=== PATIENT | male | born 1965 | race Caucasian/White ===

== ENCOUNTER 2021-03-10 09:48 | Outpatient (RCR) | payer OTHER, SELFPAY ==
--- NOTE | ~2021-03-10 | XR_ITS ---
EXAMINATION: XR TIBIA AND FIBULA, RIGHT CLINICAL INFORMATION: Evaluate for posterior. COMPARISON: None TECHNIQUE: AP and lateral views of the right tibia and fibula were obtained. FINDINGS: The ankle mortise and subtalar joints are normal. There is no periosteal thickening or elevation seen of the tibia and fibula. No fracture or lytic process. Soft tissues are normal. XR/XR tibia fibula RT 2V IMPRESSION: Unremarkable right tibia and fibula. No periosteal thickening or elevation suggest periostitis or osteomyelitis.
[2021-03-13 12:27] LABS: MANUAL DIFF FLAG NO
[2021-03-13 12:35] LABS: Basophils Absolute Auto 0.1 X10*3/uL (0.0-0.2); Basophils Percent Auto 1.3 % (0-2); Eosinophils Absolute Auto 0.2 X10*3/uL (0.0-0.4); Eosinophils Percent Auto 2.3 % (0-4); Hematocrit 45.1 % (42-52); Hemoglobin 14.9 g/dl (14.0-18.0); Imm Gran Abs Auto 0.15 X10*3/uL (0.00-0.03); Imm Gran Pct Auto 2.1 % (0.0-0.4); Lymphocytes Percent Auto 28.7 % (20-40); Mean Corpuscular Hemoglobin 32.7 pg (27.0-33.0); Mean Corpuscular Volume 98.9 fL (80-98); Mean Platelet Volume 9.6 fL (9.4-12.4); Monocytes Percent Auto 13.7 % (2-11); Neutrophils Absolute Auto 3.7 X10*3/uL (2.0-8.3); Neutrophils Percent Auto 51.9 % (45-73); Platelet Count 367 X10*3/uL (160-400); Red Blood Count 4.56 X10*6/uL (4.60-5.80); Red Cell Distribution Width 13.2 % (11.0-16.0); White Blood Count 7.1 X10*3/uL (4.8-10.8)
[2021-03-13 13:13] LABS: Anion Gap 12 (12-20); Blood Urea Nitrogen 13 mg/dL (9-16); Calcium 9.4 mg/dL (8.4-10.2); Carbon Dioxide 27 mmol/L (22-29); Chloride 105 mmol/L (96-108); Estimated Glomerular Filt Rate > 60; Glucose Random 114 mg/dL (60-115); Potassium 4.6 mmol/L (3.3-5.1); Sodium 139 mmol/L (135-145)
[2021-03-13 13:23] LABS: Erythrocyte Sedimentation Rate 39 MM/HR (0-15)
[2021-03-13 14:01] LABS: Estimated Average Glucose 103 mg/dL; Hemoglobin A1c % 5.2 %
== END 2021-05-21 11:35 | disposition home or self-care (01) ==
LOC: HO.WCC 09:48
PROVIDERS: PCP Internal Medicine; Visit Provider Physician Assistant
DX: Z09 Encounter for follow-up examination after completed treatment for conditions other than malignant neoplasm (principal); I87.301 Chronic venous hypertension (idiopathic) without complications of right lower extremity; I73.9 Peripheral vascular disease, unspecified; Z87.891 Personal history of nicotine dependence; Z87.2 Personal history of diseases of the skin and subcutaneous tissue
CPT/HCPCS: 11042; 36415; 73590; 80048; 83036; 84134; 85025; 85652; 86140; 87071; 87077; 87147; 87186; 87205; 97597; 99212; 99213

== ENCOUNTER 2024-08-28 14:38 | Outpatient (REF) | payer OTHER, SELFPAY ==
--- NOTE | ~2024-08-28 | XR_ITS ---
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 FINDINGS: Three views of the left hand are submitted. Osseous mineralization is normal. There is no fracture or dislocation. The joint spaces are preserved. The soft tissues are unremarkable. XR/XR hand LT min 3V IMPRESSION: Unremarkable examination of the left hand. Electronically signed by: Jey Damon MD 08/29/2024 07:51 AM EDT
--- OUTSIDE RECORDS SUMMARY | 2024-08-28 17:26 | XMS_ITS ---
Author Organization Mallory Lr MD Address [address] [id number] Care Team Providers Care Creative Services Writer Name Role Phone Mallory Lr Primary Care Provider Allergies Allergen (clinical drug ingredient) Drug/Non Drug Allergy documented on EMR Reaction Allergy Type Onset Date Status Cat dander cat (uncoded) Unknown Allergy Activ e Dog dander dog (uncoded) Unknown Allergy Activ e dust (uncoded) Unknown Allergy Activ e Ciprofloxacin anaphylaxis Drug Allergy A ctive REASON FOR VISIT Annual Wellness Medications Medication SIG (Take, Route, Frequency, Duration) Notes Start Date End Date Status Triazolam 0.25 MG (Schedule IV Drug) O ral for 30 Active Aspir-81 81 MG 1 tablet Orally ever y other day Active Flonase 50 MCG/ACT 1 spray in each nost ril Nasally Once a day for 30 Active Viagra 100 MG TAKE 1 TABLET BY ALEJA TH ONCE A DAY NEEDED for 4 Active Allopurinol 300 MG TAKE 1 TABLET BY ALEJA TH EVERY DAY for 90 Active traZODone HCl 50 MG 1 Tablet Oral Once a Day at Bedtime for 30 Active EpiPen 2-Marcell 0.3 MG/0.3ML Injection for 2 Active Vitamin D 50 MCG (1999) 1 capsule Ora lly Once a day Active Gabapentin 300 MG 3 Tablets Oral Once a Day at Bedtime for 30 Active Social History Tobacco Use: Social History Observation Description Date Details (start date - stop date) Former Smoker NA - 06/13/2007 AUDIT-C (Standard) Question Answer Notes Did you have a drink contain ing alcohol in the past year? Yes How often did you have a dri nk containing alcohol in the past year? 2 to 3 times a week (3 points) How many drinks did you have on a typical day when you were drinking in the past year? 1 or 2 drinks (0 point) How often did you have six o r more drinks on one occasion in the past year? Never (0 point) Points 3 Interpretation Negative Tobacco Control (Standard) Question Answer Notes Tobacco use: Former smoker When did you stop smoking? 06/13/2007 How long has it been since you last smoked? Emilioa ter than 10 years Problems Problem Type SNOMED Code ICD Code Onset Dates Problem Status W/U Status Risk Notes Problem Localized, primary osteoarthritis of the hand (520509556) Unilateral primary osteoarthritis of first carpometacarpal joint, left hand (M18.12) Active confirmed Vital Signs Temperature 96.8 degrees Fahrenheit 08/29/19 25 Blood pressure systolic 110 mm Hg 08/29/19 25 Blood pressure diastolic 50 mm Hg 025 Heart Rate 67 /min 08/28/2024 Height 5 ft 9 in in 08/28/2024 Weight 213 lbs 08/28/2024 BMI 31.45 kg/m2 08/28/2024 Oximetry 97 % 08/28/2024 Encounters Encounter Location Date Provider Diagnosis Mallory Lr MD [address] [phone] 08/28/2024 Mallory Lr Obstructive sleep ap tila (adult) (pediatric) G47.33 ; Gout, unspecified M10.9 ; Encounter for general adult medical examination without abnormal findings Z00.00 ; Encounter for screening for malignant neoplasm of colon Z12.11 ; Encounter for screening for malignant neoplasm of prostate Z12.5 ; Encounter for screening for cardiovascular disorders Z13.6 ; Encounter for immunization Z23 ; Encounter for antibody response examination Z01.84 ; Encounter for screening for other viral diseases Z11.59 ; Vitamin D deficiency, unspecified E55.9 and Unilateral primary osteoarthritis of first carpometacarpal joint, left hand M18.12 Assessments Encounter Date Diagnosis (ICD Code) Assessment Notes Treatment Notes Treatment Clinical Notes Section Notes 08/28/2024 Obstructive sleep apnea (adult) (pediatric) (ICD-10 - G47.33) He has a new machine and is using his CPAP with benefit. 08/28/2024 Gout, unspecified (ICD-10 - M10.9) Stable prophylactic therapy without any acute flares 08/28/2024 Encounter for general adult medical examination without abnormal findings (ICD-10 - Z00.00) General healthcare up-to-date. Check routine labs 08/28/2024 Encounter for screening for malignant neoplasm of colon (ICD-10 - Z12.11) Up-to-date on colon cancer screening 08/28/2024 Encounter for screening for malignant neoplasm of prostate (ICD-10 - Z12.5) Can check PSA has prostate cancer screening realizing the limitation of this test as a screening test 08/28/2024 Encounter for screening for cardiovascular disorders (ICD-10 - Z13.6) Blood pressure is stable. Can check for comorbidity of hyperlipidemia and hyperglycemia to further assess risk. 08/28/2024 Encounter for immunization (ICD-10 - Z23) Vaccines up to date 08/28/2024 Encounter for antibody response examination (ICD-10 - Z01.84) Titers have been checked in the past and there is immunity to rubeola 08/28/2024 Encounter for screening for other viral diseases (ICD-10 - Z11.59) Can screen for hepatitis C as per general recommendation 08/28/2024 Vitamin D deficiency, unspecified (ICD-10 - E55.9) Check level to verify that there is no deficiency 08/28/2024 Unilateral primary osteoarthritis of first carpometacarpal joint, left hand (ICD-10 - M18.12) He has a vague discomfort in his hand. He was concerned that 1 time his hand locked up. There does not appear to be any neuropathic issue at the moment and this may be related to some degree of arthritis. Can check x-ray and if there is significant issues can consider steroid injection but he is hesitant to do so. Other option would be occupational therapy 08/28/2024 Other This note was created with voice dictation recognition software and may contain errors of grammar and syntax. Also labs were reviewed with patient. Plan Of Treatment Pending Test Test Name Order Date XR Hand Left 08/28/2024 Uric Acid-[id number] 08/28/2024 Urinalysis, Complete-[id number] 08/28/2024 CBC With Differential/Platelet-[id number] Prostate-Specific Ag-[id number] 08/28/2024 Vitamin D, 45-Chahdzy-[id number] 08/28/2024 Comp. Metabolic Panel ([id number] 2024 LP+Non-HDL Cholesterol-[id number] 08/28/2024 HCV Antibody-[id number] 08/28/2024 Future Test Test Name Order Date COLOGUARD 05/13/2025 Next Appt Details Follow Up: 1 Year, Reason: A nnual Provider Name:Mallory Lr , 09/03/2025 01:00:00 PM, [address] [place] [address], SUITE [facility], [place], [place], [phone], Progress Notes * LUÍSSUNFlorencioDOB:[birth year] (59 yo M)Acc No.[id number]:08/28/2024 Progress Notes Patient:?CHAKAJIMMIE Florencio Provider:?Mallory Lr MD :1965???Age:59 Y???Sex:Male Hao e:08/28/2024 Address:[address] [place], [place] [id number] Subjective: * Chief Complaints: * ???1. Annual Wellness. * HPI: ???Depression Screening:?PHQ-2 (2015 Edition)?Little interest or pleasure in doing things??Not at all ?Feeling down, depressed, or hopeless??Not at all ?Total Score?0 * Medical History:?Nephrolithi asis, Gout, unspecified, Premature ventricular beats, Sleep apnea, obstructive parmjit, Diverticulitis of large intestine without perforation or abscess without bleeding, Non-pressure chronic ulcer of unspecified part of right lower leg limited to breakdown of skin (resolved 08/19/2022), Cellulitis of right lower limb (resolved 08/19/2022), COVID19 ITALIA-Virus Identified (resolved 08/19/2022). * Surgical History:?UPP . * Ocular Surgical History:? Ocular Surgical History revi ewed with the patient. * Hospitalization/Major Diagno stic Procedure:?Denies Past Hospitalization. * Family History:?Father: yayo pineda 83 yrs, Diabetes, heart disease, history of skin cancer, atrial fibrillation.?Spouse: alive 55 yrs, Heart disease, stroke.?Mother: alive 79 yrs, Healthy.?2 brother(s) , 1 sister(s) - healthy. .? No family history of: cancer, colon No family history of: cancer, prostate Father: CAD; cancer, skin; diabetes; gout, afib Paternal grandfather: diabetes. * Social History:?Tobacco Use:?Tobacco Control (Standard)?Tobacco use:?Former smoker ?When did you stop smoking??06/13/2007 ?How long has it been since you last smoked??Greater than 10 years ???Drugs/Alcohol:?Drugs?Have you used drugs other than those for medical reasons in the past 12 months??No ?Caffeine?Intake:?3-4 cups per day ?Do you smoke marijuana?: Denies. ?Do you drink alcohol?: Yes, Socially. ???Miscellaneous:?Exercise: no, Not as much. ?Marital status: , in relationship with male partner. 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 ???Household:?Household?Marital status:?Drug/Alcohol:?AUDIT-C (Standard)?Did you have a drink containing alcohol in the past year??Yes ?How often did you have a drink containing alcohol in the past year??2 to 3 times a week (3 points) ?How many drinks did you have on a typical day when you were drinking in the past year??1 or 2 drinks (0 point) ?How often did you have six or more drinks on one occasion in the past year??Never (0 point) ?Points?3 ?Interpretation?Negative * Medications:?Taking Vitamin D 50 MCG (2000 UT) Capsule 1 capsule Orally Once a day , Taking Gabapentin 300 MG Capsule 3 Tablets Oral Once a Day at Bedtime , Taking traZODone HCl 50 MG Tablet 1 Tablet Oral Once a Day at Bedtime , Taking EpiPen 2-Marcell 0.3 MG/0.3ML Solution Auto-injector Injection , Taking Triazolam 0.25 MG Tablet (Schedule IV Drug) Oral , Taking Aspir-81 81 MG Tablet Delayed Release 1 tablet Orally every other day , Taking Flonase 50 MCG/ACT Suspension 1 spray in each nostril Nasally Once a day , Taking Viagra 100 MG Tablet TAKE 1 TABLET BY MOUTH ONCE A DAY NEEDED , Taking Allopurinol 300 MG Tablet TAKE 1 TABLET BY MOUTH EVERY DAY , Medication List reviewed and reconciled with the patient * Allergies:?dust, cat, dog, C iprofloxacin: anaphylaxis - Allergy. Objective: * Vitals:?Temp:96.8F, HR:67/mi n, BP:Sitting Right Arm: 110/50mm Hg, Wt:213lbs, BMI:31.45Index, Ht:5 ft 9 in, Oxygen sat %:97%. Past Vitals:* 08/23/2023 Temp:98.5F, HR:70/min, BP:Si tting Right Arm: 110/70mm Hg, Wt:217.00lbs, BMI:32.04Index, Ht:5 ft 9 in, Oxygen sat %:96% * 08/19/2022 Temp:96.4F, HR:75/min, BP:Si tting Right Arm:122/72mm Hg, Wt:222lbs, BMI:32.78Index, Ht:5 ft 9 in, Oxygen sat %:96% * ???Past Orders: ???Lab:CBC With Differential /Platelet-[id number] (Order Date - 08/23/2023) (Collection Date & Time - 08/23/2023 01:43 PM) ? Value Reference Range ?WBC 7.1 3.4-10.8 - x10E3/uL ?RBC 5.01 4.14-5.80 - x10E6/uL ?Hemoglobin 16.6 13.0-17.7 - g/dL ?Hematocrit 49.6 37.5-51.0 - % ?MCV 99 H 79-97 - fL ?MCH 33.1 H 26.6-33.0 - pg ?MCHC 33.5 31.5-35.7 - g/d L ?RDW 12.8 11.6-15.4 - % ?Platelets 248 150-450 - x10E3/uL ?Neutrophils 44 Not Esta b. - % ?Lymphs 42 Not Estab. - % ?Monocytes 11 Not Estab. - % ?Eos 2 Not Estab. - % ?Basos 1 Not Estab. - % ?Neutrophils (Absolute) 3.1 1.4-7.0 - x10E3/uL ?Lymphs (Absolute) 3.0 0. 7-3.1 - x10E3/uL ?Monocytes(Absolute) 0.8 0.1-0.9 - x10E3/uL ?Eos (Absolute) 0.2 0.0-0 .4 - x10E3/uL ?Baso (Absolute) 0.1 0.0- 0.2 - x10E3/uL ?Immature Granulocytes 0 Not Estab. - % ?Immature Grans (Abs) 0.0 0.0-0.1 - x10E3/uL ???Lab:Comp. Metabolic Panel ([id number] (Order Date - 08/23/2023) (Collection Date & Time - 08/23/2023 01:43 PM) ? Value Reference Range ?Glucose 104 H 70-99 - mg/d L ?BUN 13 6-24 - mg/dL ?Creatinine 0.97 0.76-1.27 - mg/dL ?BUN/Creatinine Ratio 13 9-20 - ?Sodium 145 H 134-144 - mmo l/L ?Potassium 4.7 3.5-5.2 - mmol/L ?Chloride 104 96-106 - mm ol/L ?Carbon Dioxide, Total 23 20-29 - mmol/L ?Calcium 9.7 8.7-10.2 - m g/dL ?Protein, Total 7.4 6.0-8 .5 - g/dL ?Albumin 4.3 3.8-4.9 - g/ dL ?Globulin, Total 3.1 1.5- 4.5 - g/dL ?A/G Ratio 1.4 1.2-2.2 - ?Bilirubin, Total 0.2 0.0 -1.2 - mg/dL ?Alkaline Phosphatase 106 44-121 - IU/L ?AST (SGOT) 24 0-40 - IU /L ?ALT (SGPT) 27 0-44 - IU /L ?eGFR 90 >59 - mL/min/1. 73 ???Lab:LP+Non-HDL Cholestero l-[id number] (Order Date - 08/23/2023) (Collection Date & Time - 08/23/2023 01:43 PM) ? Value Reference Range ?Cholesterol, Total 220 H 1 00-199 - mg/dL ?Triglycerides 135 0-149 - mg/dL ?HDL Cholesterol 52 >39 - mg/dL ?VLDL Cholesterol Mehdi 24 5-40 - mg/dL ?LDL Chol Calc ([facility]) 144 H 0-99 - mg/dL ?Non-HDL Cholesterol 168 H 0-129 - mg/dL ???Lab:Vitamin D, 25-Hydroxy -[id number] (Order Date - 08/23/2023) (Collection Date & Time - 08/23/2023 01:43 PM) ? Value Reference Range ?Vitamin D, 25-Hydroxy 62.9 30.0-100.0 - ng/mL ???Lab:Uric Acid-[id number] (Ord er Date - 08/23/2023) (Collection Date & Time - 08/23/2023 01:43 PM) ? Value Reference Range ?Uric Acid 4.3 3.8-8.4 - mg/dL ???Lab:Urinalysis, Complete- [id number] (Order Date - 08/23/2023) (Collection Date & Time - 08/23/2023 01:43 PM) ? Value Reference Range ?Specific [place] 1.021 1.0 05-1.030 - ?pH 7.5 5.0-7.5 - ?Urine-Color Yellow Yellow - ?Appearance Clear Clear - ?WBC Esterase Negative Negativ e - ?Protein Negative Negative/Tra ce - ?Glucose Negative Negative - ?Ketones Negative Negative - ?Occult Blood Negative Negativ e - ?Bilirubin Negative Negative - ?Urobilinogen,Semi-Qn 0.2 0.2-1.0 - mg/dL ?Nitrite, Urine Negative Negat danae - ?WBC None seen 0 - 5 - /hpf ?RBC 0-2 0 - 2 - /hpf ?Epithelial Cells (non renal) None seen 0 - 10 - /hpf ?Casts None seen None seen - /l pf ?Bacteria None seen None seen/F ew - ?Microscopic Examination See below: - ???Lab:Prostate-Specific Ag- [id number] (Order Date - 08/23/2023) (Collection Date & Time - 08/23/2023 01:43 PM) ? Value Reference Range ?Prostate Specific Ag 0.9 0.0-4.0 - ng/mL ???Lab:HCV Antibody-[id number] ( Order Date - 08/23/2023) (Collection Date & Time - 08/23/2023 01:43 PM) ? Value Reference Range ?Hep C Virus Ab Non Reactive Non R eactive - ???Lab:Measles/Mumps/Rubella Immunity-[id number] (Order Date - 08/23/2023) (Collection Date & Time - 08/23/2023 01:43 PM) ? Value Reference Range ?Rubella Antibodies, IgG 12.70 Immune >0.99 - index ?Measles Antibodies, IgG >300.0 Immune >16.4 - AU/mL ?Mumps Abs, IgG 131.0 Immun e >10.9 - AU/mL * Examination: ???General Examination: ?GENERAL APPEARANCE:?Age appropriate, in no acute distress, well developed, well nourished.?HEAD:?normocephalic, atraumatic.?EYES:?extraocular movement intact (EOMI), sclera non-icteric.?NECK/THYROID:?neck supple, full range of motion, no thyromegaly.?LYMPH NODES:?no cervical adenopathy.?HEART:?regular rate and rhythm, S1, S2 normal.?LUNGS:?clear to auscultation bilaterally.?BACK:?no kyphosis, no scoliosis.?EXTREMITIES:?no clubbing, cyanosis, or edema.?NEUROLOGIC:?nonfocal, alert and oriented, gait normal, motor strength grossly normal upper and lower extremities, no tremor.?PSYCH:?alert, oriented, good eye contact.?Wrist / Hand: ?MCP AND IP JOINTS:?no synovitis.?PALPATION:?tender first carpometacarpal joint.?HAND ELEVATION TEST?Negative.? Assessment: * Assessment: 1.?Obstructive sleep apnea ( adult) (pediatric) - G47.33???2.?Gout, unspecified - M10.9???3.?Encounter for general adult medical examination without abnormal findings - Z00.00 (Primary)???4.?Encounter for screening for malignant neoplasm of colon - Z12.11???5.?Encounter for screening for malignant neoplasm of prostate - Z12.5???6.?Encounter for screening for cardiovascular disorders - Z13.6???7.?Encounter for immunization - Z23???8.?Encounter for antibody response examination - Z01.84???9.?Encounter for screening for other viral diseases - Z11.59???10.?Vitamin D deficiency, unspecified - E55.9???11.?Unilateral primary osteoarthritis of first carpometacarpal joint, left hand - M18.12??? Plan: * Treatment: 2.?Obstructive sleep apnea ( adult) (pediatric)? Clinical Notes: He has a new machine and is using his CPAP with benefit.?? 3.?Gout, unspecified?LAB: Uric Acid-[id number] Clinical Notes: Stable prophylactic therapy without any acute flares?? 4.?Encounter for screening f or malignant neoplasm of colon?LAB: ASHELY (Ordered for 05/13/2025) Clinical Notes: Up-to-date on colon cancer screening?? 5.?Encounter for screening f or malignant neoplasm of prostate?LAB: Prostate-Specific Ag-[id number] Clinical Notes: Can check PSA has prostate cancer screening realizing the limitation of this test as a screening test?? 6.?Encounter for screening f or cardiovascular disorders? Clinical Notes: Blood pressure is stable. Can check for comorbidity of hyperlipidemia and hyperglycemia to further assess risk.?? 7.?Encounter for immunizatio n? Clinical Notes: Vaccines up to date?? 8.?Encounter for antibody re sponse examination? Clinical Notes: Titers have been checked in the past and there is immunity to rubeola?? 9.?Encounter for screening f or other viral diseases?LAB: HCV Antibody-[id number] Clinical Notes: Can screen for hepatitis C as per general recommendation?? 10.?Vitamin D deficiency, un specified?LAB: Vitamin D, 06-Fbeycuy-646407 Clinical Notes: Check level to verify that there is no deficiency?? 11.?Unilateral primary osteo arthritis of first carpometacarpal joint, left hand?Imaging: XR Hand Left Clinical Notes: He has a vague discomfort in his hand. He was concerned that 1 time his hand locked up. There does not appear to be any neuropathic issue at the moment and this may be related to some degree of arthritis. Can check x-ray and if there is significant issues can consider steroid injection but he is hesitant to do so. Other option would be occupational therapy?? 12.?Others? Clinical Notes: This note was created with voice dictation recognition software and may contain errors of grammar and syntax. Also labs were reviewed with patient.?? * Procedure Codes:?3017F COLOR ECTAL CA SCREEN DOC REV, 1036F TOBACCO NON-USER, G8783 NORMAL BP READING DOC F/U NOT RQR * Preventive Medicine:? ??Cardiovascular Risk Assesment:?OBRIEN Risk Score:?Date of Calculation:?08/28/2024 ?10 Year risk of a CHD Event:?4.5 ??YOUR PREVENTIVE WELLNESS PLAN:?Prevnar?The Recommended Frequency is:?1 dose age 65+ ?Abdominal Aortic Aneurysm:?The Recommended Frequency is:?Once, between the age range of 65-75 and for those who have smoked 100+ cigarettes in lifetime ?Colorectal Cancer Screening:?The Recommended Frequency is:?Every 10 years, Colonoscopy, Every 3 years, Cologuard ?Pneumococcal (Pneumonia) Vaccine:?The Recommended Frequency is:?1 dose age 65+ ?Influenza (Flu) Vaccine:?The Recommended Frequency is:?Annually ??Counseling:?BP Management:?LIFESTYLE RECOMMENDATION:?Lifestyle education regarding hypertension ?PHYSICAL ACTIVITY RECOMMENDATION:?Given encouragement to exercise ?WEIGHT REDUCTION RECOMMENDATION:?Given encouragement to lose weight ?BMI Care Goal follow up?Above Normal BMI Follow-up?Given encouragement to exercise ??Immunizations:?TdaP?Last Tdap was administered?07/26/2018 ?Tetanus?Last Tetanus was administered?08/15/2009 ?COVID?Opt[employer]ens [employer] Tech?Moderna ?First Dose?07/24/2020 ?Second Dose?08/21/2020 ?Booster [employer]ens Manufacturing Tech?Moderna ?Booster?04/21/2021 ??Screenings:?Colon cancer screening?Provider recommendation:?10 years ?Date of most recent screening:?06/04/2015 * Follow Up:?1 Year (Reason: A nnual) Care Plan: * Problems:? * Images: Billing Information: * Visit Code:? G0442 Annual Alcohol Misuse Screening, 15 min. Modifiers: G0444 Annual Depression Screening, 15 min. Modifiers: 44 Cardiovascular Screening. Modifiers: 396 Preventive Care Est Pt. Age 40-64. * Procedure Codes:? 3017F COLORECTAL CA SCREEN DOC REV. 1036F TOBACCO NON-USER. G8783 NORMAL BP READING DOC F/U NOT RQR. * Electronic signature of Katherine Lr MD on 08/28/2024 at 05:26 PM EDT Sign off status: Pending * Provider:?Mallory Lr MD Date:?08/28 Generated for Margareth nguyen/[place]/eTransmitting on:?08/28/2024 05:26 PM EDT History and Physical Notes * HPI (History of Present Illness) Category Sub-Category Detail Notes Category Not es Depression Screening PHQ-2 (2015 Edition) Little interest or pleasure in doing things?: Not at all Feeling down, depressed, or hopeless?: N ot at all Total Score: 0 Examination Category Sub-Category Detail Notes Category Not es Wrist / Hand PALPATION: tender first carpometacarpal joint MCP AND IP JOINTS: no synovitis HAND ELEVATION TEST Negative General Examination GENERAL APPEARANCE: Age appr opriate, in no acute distress, well developed, well nourished HEAD: normocephalic, atrau matic EYES: extraocular movement intact (EOMI), sclera non-icteric NECK/THYROID: neck supple, full ra nge of motion, no thyromegaly HEART: regular rate and rhy thm, S1, S2 normal LUNGS: clear to auscultatio n bilaterally NEUROLOGIC: nonfocal, alert and oriented, gait normal, motor strength grossly normal upper and lower extremities, no tremor EXTREMITIES: no clubbing, cyanosi s, or edema BACK: no kyphosis, no scol iosis LYMPH NODES: no cervical adenopat hy PSYCH: alert, oriented, goo d eye contact
--- OUTSIDE RECORDS SUMMARY | 2024-08-28 17:26 | XMS_ITS | Patient Health Record ---
Author Organization [facility] Address [address] [id number] Care Team Providers Care Payroll Accountant Name Role Phone [facility] Primary Care Provider [phone] Allergies Allergen (clinical drug ingredient) Drug/Non Drug Allergy documented on EMR Reaction Allergy Type Onset Date Status Cat dander cat (uncoded) Unknown Allergy Activ e Dog dander dog (uncoded) Unknown Allergy Activ e dust (uncoded) Unknown Allergy Activ e Ciprofloxacin anaphylaxis Drug Allergy A ctive Reason For Referral No Information Medications Medication SIG (Take, Route, Frequency, Duration) [...] for 2 Active Vitamin D 50 MCG (1999 UT) 1 capsule Ora lly Once a day Active Gabapentin 300 MG 3 Tablets Oral Once a Day at Bedtime for 30 Active Immunizations Vaccine Route Administration Date Status Comme nts *Shingrix Unknown 05/11/2023 Administered *Shingrix Unknown 07/16/2023 Administered *Tdap IM Intramuscular 07/26/2018 Administered COVID Spikevax Moderna Unknown 03/09/2023 Administered COVID Spikevax Moderna Unknown 03/04/2024 Administered COVID-19 Moderna BiValent Booster Unknown 03/15/2022 Administered ZHQFS-73-Dobaiux Vaccine Unknown 07/24/2020 Administere d MIRQK-48-Hmwddqb Vaccine Unknown 08/21/2020 Administere d PSVCJ-89-Tvqrivn Vaccine Unknown 04/21/2021 Administere d ZWUSY-46-Nfvedhe Vaccine Unknown 10/20/2021 Administere d Influenza, seasonal, injectable (split), for 3 yrs and up Unknown 03/18/2015 Administered Uzijapeyq-5206-34 Afluria-Single Unknown 04/05/2018 Administered Psumgjlos-7888-82 Afluria-Single Unknown 03/15/2022 Administered Ztbzuzapa-9152-67 Afluria-Single Unknown 03/09/2023 Administered Influenza-Afluria (IIV4) Unknown 04/11/2019 Administere d Influenza-Afluria (IIV4) Unknown 03/04/2020 Administere d Influenza-Afluria (IIV4) Unknown 04/21/2021 Administere d Td (adult) preservative free Unknown 08/15/2009 Administered Social History Tobacco Use: Social History Observation [...] has it been since you last smoked? 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) Active confirmed Problem Gout (52555110) Gout, unspecifie d (M10.9) Active confirmed Problem Localized, primary osteoarthritis of the hand (678742177) Unilateral primary osteoarthritis of first carpometacarpal joint, left hand (M18.12) Active confirmed Problem Body mass index 30.00 to 34.99 (790371490128566) Body mass index [BMI] 32.0-32.9, adult (Z68.32) Active confirmed Problem Diverticulitis of colon (189418485) Diverticulitis of large intestine without perforation or abscess without bleeding (K57.32) Inactive confirmed Problem Cellulitis of right lower limb (0217798879242809 4) Cellulitis of right lower limb (L03.115) Problem resolved confirmed Problem Non-pressure chronic ulcer of unspecified part of right lower leg limited to breakdown of skin (L97.911) Problem resolved confirmed Problem COVID19 ITALIA-Viru s Identified (U07.1) Problem resolved confirmed Vital Signs Heart Rate 67 /min 08/28/2024 Temperature 96.8 degrees Fahrenheit 08/28/2024 Oximetry 97 % 08/28/2024 Blood pressure diastolic 50 mm Hg 08/28/2024 Height 5 ft 9 in in 08/28/2024 Blood pressure systolic 110 mm Hg 08/28/2024 Weight 213 lbs 08/28/2024 BMI 31.45 kg/m2 08/28/2024 Encounters Encounter Location Date Provider Diagnosis [facility] [address] [phone] 08/28/2024 [facility] Obstructive sleep ap tila [...] Treatment Pending Test Test Name Order Date EBCT Coronary calcium score 08/23/2023 25OH VITAMIN D 08/08/2019 25OH VITAMIN D 07/26/2018 25OH VITAMIN D 08/11/2020 25OH VITAMIN D 08/17/2021 25OH VITAMIN D 12/10/2016 COMPLETE CBC WITH DIFF 12/10/2016 COMPLETE CBC WITH DIFF 12/09/2015 COMPLETE CBC WITH DIFF 08/17/2021 COMPLETE CBC WITH DIFF 08/11/2020 COMPLETE CBC WITH DIFF 07/26/2018 COMPLETE CBC WITH DIFF 08/08/2019 COMPLETE URINALYSIS 08/17/2021 COMPLETE URINALYSIS 07/26/2018 COMPLETE URINALYSIS 08/08/2019 COMPLETE URINALYSIS 08/11/2020 COMPLETE URINALYSIS 12/10/2016 COMPLETE URINALYSIS 12/09/2015 COMPREHENSIVE METABOLIC PANEL 12/09/2015 COMPREHENSIVE METABOLIC PANEL 08/11/2020 COMPREHENSIVE METABOLIC PANEL 12/10/2016 COMPREHENSIVE METABOLIC PANEL 07/26/2018 COMPREHENSIVE METABOLIC PANEL 08/17/2021 COMPREHENSIVE METABOLIC PANEL 08/08/2019 FOLIC ACID 08/20/2022 IMMUNOFIXATION SERUM 08/20/2022 LIPID PANEL 12/09/2015 LIPID PANEL W REFLEX TO DLDL 07/26/2018 LIPID PANEL W REFLEX TO DLDL 08/08/2019 LIPID PANEL W REFLEX TO DLDL 08/17/2021 LIPID PANEL W REFLEX TO DLDL 08/11/2020 LIPID PANEL W REFLEX TO DLDL 12/10/2016 PSA 12/09/2015 PSA 08/17/2021 PSA 08/11/2020 PSA 08/08/2019 RETICULOCYTE COUNT 08/20/2022 URIC ACID 08/11/2020 URIC ACID 12/10/2016 VITAMIN B12 08/20/2022 MMR (MEASLES, MUMPS, RUBELLA) IGG TITER 08/11/2020 MMR (MEASLES, MUMPS, RUBELLA) IGG TITER 08/08/2019 MMR (MEASLES, MUMPS, RUBELLA) IGG TITER 08/17/2021 XR Hand Left 08/28/2024 Uric Acid-[id number] 08/28/2024 Urinalysis, Complete-[id number] 08/28/2024 CBC With Differential/Platelet-[id number] Prostate-Specific Ag-[id number] 08/28/2024 Vitamin D, 57-Wictsja-[id number] 08/28/2024 Comp. Metabolic Panel [phone] 2024 LP+Non-HDL Cholesterol-710667 08/28/2024 HCV Antibody-[id number] 08/28/2024 Next Appt Details Provider Name:[facility] , 09/03/2025 01:00:00 PM, [address] [place] [address], [address], [place], [place], [phone], Insurance Providers Payer Name Payer Address Payer Phone Subscriber Number Group Number Insured Name Patient Relationship to Insured Coverage Start Date Coverage End Date [facility] [address] [facility] [address] [place] [phone] [id number] Florencio Kumar Self - patient is the insured Medical (General) History Medical History History ICD Code Nephrolithiasis Gout, unspecified Premature ventricular beats Sleep apnea, obstructive parmjit Diverticulitis of large inte rogelio without perforation or abscess without bleeding K57.32 Non-pressure chronic ulcer o f unspecified part of right lower leg limited to breakdown of skin (resolved 08/19/2022) Cellulitis of right lower limb (resolved 08/19/2022) COVID19 ITALIA-Virus Identified (resolved 0 08/19/2022) Surgical History Surgery Date(Month/Year) UPP Hospitalization History Reason Date(Month/Year)
--- OUTSIDE RECORDS SUMMARY | 2024-08-28 17:26 | XMS_ITS ---
Author Organization Mallory Lr MD Address [address] [id number] Care Team Providers Care District Director Name Role Phone Mallory Lr Primary Care Provider Allergies Allergen (clinical drug ingredient) Drug/Non Drug Allergy documented on EMR Reaction Allergy Type Onset Date Status Cat dander cat (uncoded) Unknown Allergy Activ e Dog dander dog (uncoded) Unknown Allergy Activ e dust (uncoded) Unknown Allergy Activ e Ciprofloxacin anaphylaxis Drug Allergy A ctive Results Component Value Reference Range Notes Uric Acid-[id number] Reviewed date:08/24/2023 06:27:43 PM Interpretation: Performing Lab:[facility] [place], [address] [facility], [place], Phone - [phone], Director - Karlos Notes/Report: Uric Acid 4.3 3.8-8.4 mg/dL Therapeutic ta rget for gout patients: <6.0 Urinalysis, Complete-[id number] Reviewed date:08/24/2023 06:27:43 PM Interpretation: Performing Lab:[facility], [address] [facility], [place], Phone - [phone], Director - Karlos Notes/Report: Specific [place] 1.021 1.005-1.030 pH 7.5 5.0-7.5 Urine-Color Yellow Yellow Appearance Clear Clear WBC Esterase Negative Negative Protein Negative Negative/Trace Glucose Negative Negative Ketones Negative Negative Occult Blood Negative Negative Bilirubin Negative Negative Urobilinogen,Semi-Qn 0.2 0.2-1.0 mg/dL Nitrite, Urine Negative Negative Microscopic Examination Micr oscopic follows if indicated. Microscopic Examination See below: Micr oscopic was indicated and was performed. WBC None seen 0 - 5 /hpf RBC 0-2 0 - 2 /hpf Epithelial Cells (non renal) None seen 0 - 10 /hpf Casts None seen None seen /lpf Bacteria None seen None seen/Few CBC With Differential/Platel et-[id number] Reviewed date:08/24/2023 06:27:43 PM Interpretation: Performing Lab:[facility], [address] [place] [address], Phone - [phone], Director - MDJodry Notes/Report: WBC 7.1 3.4-10.8 x10E3/uL RBC 5.01 4.14-5.80 x10E6/uL Hemoglobin 16.6 13.0-17.7 g/dL Hematocrit 49.6 37.5-51.0 % MCV 99 79-97 fL MCH 33.1 26.6-33.0 pg MCHC 33.5 31.5-35.7 g/dL RDW 12.8 11.6-15.4 % Platelets 248 150-450 x10E3/uL Neutrophils 44 Not Estab. % Lymphs 42 Not Estab. % Monocytes 11 Not Estab. % Eos 2 Not Estab. % Basos 1 Not Estab. % Neutrophils (Absolute) 3.1 1.4-7.0 x10E3/uL Lymphs (Absolute) 3.0 0.7-3.1 x10E3/uL Monocytes(Absolute) 0.8 0.1-0.9 x10E3/uL Eos (Absolute) 0.2 0.0-0.4 x10E3/uL Baso (Absolute) 0.1 0.0-0.2 x10E3/uL Immature Granulocytes 0 Not Estab. % Immature Grans (Abs) 0.0 0.0-0.1 x10E3/uL Prostate-Specific Ag-[id number] Reviewed date:08/24/2023 06:27:43 PM Interpretation: Performing Lab:[facility], [address] [place] [address], [place], Phone - [phone], Director - Parmjity Notes/Report: Prostate Specific Ag 0.9 0.0-4.0 ng/mL Lizbeth ECLIA methodology. . According to the [place] [employer], Serum PSA should decrease and remain at undetectable levels after radical prostatectomy. The AUA defines biochemical recurrence as an initial PSA value 0.2 ng/mL or greater followed by a subsequent confirmatory PSA value 0.2 ng/mL or greater. Values obtained with different assay methods or kits cannot be used interchangeably. Results cannot be interpreted as absolute evidence of the presence or absence of malignant disease. Measles/Mumps/Rubella Immuni ty-[id number] Reviewed date:08/24/2023 06:27:43 PM Interpretation: Performing Lab:[facility], [address] [place] [address], Phone - [phone], Director - [facility] Notes/Report: Rubella Antibodies, IgG 12.70 Immune >0.99 inde x Non-immune <0.90 Equivocal 0.90 - 0.99 Immune >0.99 Measles Antibodies, IgG >300.0 Immune >16.4 AU/m L Negative <13.5 Equivocal 13.5 - 16.4 Positive >16.4 Presence of antibodies to Rubeola is presumptive evidence of immunity except when acute infection is suspected. Mumps Abs, IgG 131.0 Immune >10.9 AU/mL Negative <9.0 Equivocal 9.0 - 10.9 Positive >10.9 A positive result generally indicates past exposure to Mumps virus or previous vaccination. Vitamin D, 00-[id number] Reviewed date:08/24/2023 06:27:43 PM Interpretation: Performing Lab:[facility], [address] [place] [address], Phone - [phone], Director - [facility] Notes/Report: Vitamin D, 25-Hydroxy 62.9 30.0-100.0 ng/mL Vitamin D deficiency has been defined by the [place] [employer] and an Endocrine Society practice guideline as a level of serum 25-OH vitamin D less than 20 ng/mL (1,2). The Endocrine Society went on to further define vitamin D insufficiency as a level between 21 and 29 ng/mL (2). 1. IOM ([place] [employer]). 2010. Dietary reference intakes for calcium and D. [place]: The National Academies Press. 2. Silvia BRISENO, Mala PEREZ, Rosey OLIVERA, et al. Evaluation, treatment, and prevention of vitamin D deficiency: an Endocrine Society clinical practice guideline. JCEM. 2010; 96(7):1911-30. Comp. Metabolic Panel (14)-[id number] Reviewed date:08/24/2023 06:27:44 PM Interpretation: Performing Lab:[facility] [place], [address] [facility], [place], Phone - [phone], Director - Karlos Notes/Report: Glucose 104 70-99 mg/dL BUN 13 6-24 mg/dL Creatinine 0.97 0.76-1.27 mg/dL eGFR 90 >59 mL/min/1.73 BUN/Creatinine Ratio 13 9-20 Sodium 145 134-144 mmol/L Potassium 4.7 3.5-5.2 mmol/L Chloride 104 96-106 mmol/L Carbon Dioxide, Total 23 20-29 mmol/L Calcium 9.7 8.7-10.2 mg/dL Protein, Total 7.4 6.0-8.5 g/dL Albumin 4.3 3.8-4.9 g/dL Globulin, Total 3.1 1.5-4.5 g/dL A/G Ratio 1.4 1.2-2.2 Bilirubin, Total 0.2 0.0-1.2 mg/dL Alkaline Phosphatase 106 44-121 IU/L AST (SGOT) 24 0-40 IU/L ALT (SGPT) 27 0-44 IU/L LP+Non-HDL Cholesterol-[id number] Reviewed date:08/24/2023 06:27:44 PM Interpretation: Performing Lab:[facility] [place], [address] [facility], [place], Phone - [phone], Director - Karlos Notes/Report: Cholesterol, Total 220 100-199 mg/dL Triglycerides 135 0-149 mg/dL HDL Cholesterol 52 >39 mg/dL VLDL Cholesterol Mehdi 24 5-40 mg/dL LDL Chol Calc (NIH) 144 0-99 mg/dL Non-HDL Cholesterol 168 0-129 mg/dL HCV Antibody-[id number] Reviewed date:08/24/2023 06:27:44 PM Interpretation: Performing Lab:[facility] [place], [facility], [place], Phone - [phone], Director - Karlos Notes/Report: Hep C Virus Ab Non Reactive Non Reactive HCV antibody alone does not differentiate between previously resolved infection and active infection. Equivocal and Reactive HCV antibody results should be followed up with an HCV RNA test to support the diagnosis of active HCV infection. PDF Report Reviewed date:08/24/2023 06:27:44 PM Interpretation: Performing Lab:[facility] [place], [address], [place], Phone - [phone], Director - Karlos Notes/Report: REASON FOR VISIT Annual Wellness Medications Medication SIG (Take, Route, Frequency, Duration) Notes Start Date End Date Status Allopurinol 300 MG TAKE 1 TABLET BY ALEJA TH EVERY DAY for 90 Active Vitamin D 50 MCG (1999 UT) 1 capsule Ora lly Once a day Active Gabapentin 300 MG 3 Tablets Oral Once a Day at Bedtime for 30 Active traZODone HCl 50 MG 1 Tablet Oral Once a Day at Bedtime for 30 Active EpiPen 2-Marcell 0.3 MG/0.3ML Injection for 2 Active Viagra 100 MG TAKE 1 TABLET BY ALEJA TH ONCE A DAY NEEDED for 4 Active Triazolam 0.25 MG (Schedule IV Drug) O ral for 30 Active Aspir-81 81 MG 1 tablet Orally ever y other day Active Flonase 50 MCG/ACT 1 spray in each nost ril Nasally Once a day for 30 Active Social History Tobacco Use: Social History Observation Description Date Details (start date - stop date) Former Smoker NA - 06/13/2007 Tobacco Use/Smoking Question Answer Notes Are you a former smoker How long has it been since you last smoked? 5-10 years Alcohol Screen (Audit-C) Question Answer Notes Did you have a drink contain ing alcohol in the past year? Yes How often did you have a dri nk containing alcohol in the past year? 4 or more times a week (4 points) How many drinks did you have on a typical day when you were drinking in the past year? 1 or 2 drinks (0 point) How often did you have 6 or more drinks on one occasion in the past year? Never (0 point) Points 4 Interpretation Positive AUDIT-C (Standard) Question Answer Notes Did you have a drink contain ing alcohol in the past year? Yes How often did you have six o r more drinks on one occasion in the past year? Never (0 point) How many drinks did you have on a typical day when you were drinking in the past year? 1 or 2 drinks (0 point) How often did you have a dri nk containing alcohol in the past year? 2 to 3 times a week (3 points) Points 3 Interpretation Negative Tobacco Control (Standard) Question Answer Notes Tobacco use: Former smoker When did you stop smoking? 06/13/2007 How long has it been since you last smoked? Karlene ter than 10 years Vital Signs Temperature 98.5 degrees Fahrenheit 08/23/19 24 Blood pressure systolic 110 mm Hg 08/23/19 24 Blood pressure diastolic 70 mm Hg 024 Heart Rate 70 /min 08/23/2023 Height 5 ft 9 in in 08/23/2023 Weight 217.00 lbs 08/23/2023 BMI 32.04 kg/m2 08/23/2023 Oximetry 96 % 08/23/2023 Encounters Encounter Location Date Provider Diagnosis Mallory Lr MD [address] [facility] [address] [place], [place] [phone] 08/23/2023 Mallory Lr Encounter for genera l adult medical examination without abnormal findings Z00.00 ; Obstructive sleep apnea (adult) (pediatric) G47.33 ; Gout, unspecified M10.9 ; Vitamin D deficiency, unspecified E55.9 ; Encounter for screening for malignant neoplasm of colon Z12.11 ; Encounter for screening for malignant neoplasm of prostate Z12.5 ; Encounter for screening for cardiovascular disorders Z13.6 ; Encounter for immunization Z23 ; Encounter for antibody response examination Z01.84 and Encounter for screening for other viral diseases Z11.59 Assessments Encounter Date Diagnosis (ICD Code) Assessment Notes Treatment Notes Treatment Clinical Notes Section Notes 08/23/2023 Encounter for general adult medical examination without abnormal findings (ICD-10 - Z00.00) General healthcare up-to-date. Check routine labs 08/23/2023 Obstructive sleep apnea (adult) (pediatric) (ICD-10 - G47.33) He is not using his CPAP on a nightly basis. He realizes that when he does use his CPAP he feels better. Recommend nightly use of CPAP. 08/23/2023 Gout, unspecified (ICD-10 - M10.9) Stable prophylactic therapy without any acute flares 08/23/2023 Vitamin D deficiency, unspecified (ICD-10 - E55.9) Check level to verify that there is no deficiency 08/23/2023 Encounter for screening for malignant neoplasm of colon (ICD-10 - Z12.11) Up-to-date on colon cancer screening 08/23/2023 Encounter for screening for malignant neoplasm of prostate (ICD-10 - Z12.5) Can check PSA has prostate cancer screening realizing the limitation of this test as a screening test 08/23/2023 Encounter for screening for cardiovascular disorders (ICD-10 - Z13.6) Blood pressure is stable. Can check for comorbidity of hyperlipidemia and hyperglycemia to further assess risk. He would benefit from coronary artery calcium scoring for further cardiovascular risk assessment. 08/23/2023 Encounter for immunization (ICD-10 - Z23) Vaccines up to date 08/23/2023 Encounter for antibody response examination (ICD-10 - Z01.84) Can check titers to verify immune status to rubeola 08/23/2023 Encounter for screening for other viral diseases (ICD-10 - Z11.59) Can screen for hepatitis C as per general recommendation 08/23/2023 Other This note was created with voice dictation recognition software and may contain errors of grammar and syntax. Also labs were reviewed with patient. Plan Of Treatment Pending Test Test Name Order Date EBCT Coronary calcium score 08/23/2023 Next Appt Details Follow Up: 1 Year, Reason: A nnual Provider Name:Mallory Lr , 09/03/2025 01:00:00 PM, [address] [place] [address], [place] [address], [place], [phone], Progress Notes * Florencio QUIÑONEZDOB:[birth year] (58 yo M)Acc No.[id number]:08/23/2023 Progress Notes Patient:?Florencio QUIÑONEZ Provider:?Mallory Lr MD :1965???Age:58 Y???Sex:Male Hao e:08/23/2023 Address:[address] [place] [id number] Subjective: * Chief Complaints: * ???Annual Wellness * HPI: ???Depression Screening:?PHQ-2 (2015 Edition)?Little interest or pleasure in doing things??Not at all ?Feeling down, depressed, or hopeless??Not at all ?Total Score?0 * Medical History:? * Surgical History:?UPP * Ocular Surgical History:? * Hospitalization/Major Diagno stic Procedure:?No Hospitalization History. * Family History:?Father: yayo pineda 82 yrs, Diabetes, heart disease, history of skin cancer, atrial fibrillation.?Spouse: alive 54 yrs, Heart disease, stroke.?Mother: alive 78 yrs, Healthy.?2 brother(s) , 1 sister(s) - healthy. .? No family history of: cancer, colon No family history of: cancer, prostate Father: CAD; cancer, skin; diabetes; gout, afib Paternal grandfather: diabetes. * Social History:?Tobacco Use:?Tobacco Use/Smoking?Are you a?former smoker ?How long has it been since you last smoked??5-10 years ?Tobacco Control (Standard)?Tobacco use:?Former smoker ?When did you stop smoking??06/13/2007 ?How long has it been since you last smoked??Greater than 10 years ???Drugs/Alcohol:?Drugs?Have you used drugs other than those for medical reasons in the past 12 months??No ?Alcohol Screen (Audit-C)?Did you have a drink containing alcohol in the past year??Yes ?How often did you have a drink containing alcohol in the past year??4 or more times a week (4 points) ?How many drinks did you have on a typical day when you were drinking in the past year??1 or 2 drinks (0 point) ?How often did you have 6 or more drinks on one occasion in the past year??Never (0 point) ?Points?4 ?Interpretation?Positive ?Caffeine?Intake:?3-4 cups per day ?Do you smoke marijuana?: Denies. ?Do you drink alcohol?: Yes, Socially. ???Miscellaneous:?Exercise: no, Not as much. ?Marital status: , in relationship with male partner. 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 ???Drug/Alcohol:?AUDIT-C (Standard)?Did you have a drink containing alcohol in the past year??Yes ?How often did you have six or more drinks on one occasion in the past year??Never (0 point) ?How many drinks did you have on a typical day when you were drinking in the past year??1 or 2 drinks (0 point) ?How often did you have a drink containing alcohol in the past year??2 to 3 times a week (3 points) ?Points?3 ?Interpretation?Negative * Medications:?TakingVitamin D 50 MCG (1999) Capsule 1 capsule Orally Once a day Gabapentin 300 MG Capsule 3 Tablets Oral Once a Day at Bedtime traZODone HCl 50 MG Tablet 1 Tablet Oral Once a Day at Bedtime EpiPen 2-Marcell 0.3 MG/0.3ML Solution Auto-injector Injection Triazolam 0.25 MG Tablet (Schedule IV Drug) Oral Aspir- 81 81 MG Tablet Delayed Release 1 tablet Orally every other day Flonase 50 MCG/ACT Suspension 1 spray in each nostril Nasally Once a day Viagra 100 MG Tablet TAKE 1 TABLET BY MOUTH ONCE A DAY NEEDED Allopurinol 300 MG Tablet TAKE 1 TABLET BY MOUTH EVERY DAY Medication List reviewed and reconciled with the patientTaking Vitamin D 50 MCG (1999) Capsule 1 capsule Orally Once a day Taking Gabapentin 300 MG Capsule 3 Tablets Oral Once a Day at Bedtime Taking traZODone HCl 50 MG Tablet 1 Tablet Oral Once a Day at Bedtime Taking EpiPen 2-Marcell 0.3 MG/0.3ML Solution Auto-injector Injection Taking Triazolam 0.25 MG Tablet (Schedule IV Drug) Oral Taking Aspir- 81 81 MG Tablet Delayed Release 1 tablet Orally every other day Taking Flonase 50 MCG/ACT Suspension 1 spray in each nostril Nasally Once a day Taking Viagra 100 MG Tablet TAKE 1 TABLET BY MOUTH ONCE A DAY NEEDED Taking Allopurinol 300 MG Tablet TAKE 1 TABLET BY MOUTH EVERY DAY Medication List reviewed and reconciled with the patient * Allergies:?dustcatdogCiprofl oxacin: anaphylaxis - Allergyno[Allergies Verified] Objective: * Vitals:?Temp:98.5F, HR:70/mi n, BP:Sitting Right Arm: 110/70mm Hg, Wt:217.00lbs, BMI:32.04Index, Ht:5 ft 9 in, Oxygen sat %:96%. * ???Past Orders: ???Lab:COMPLETE CBC WITH DIF F (Order Date - 08/19/2022) (Collection Date & Time - 08/19/2022 04:10 PM) ? Value Reference Range ?WBC 5.9 (4.0-11.0) - K/ MM3 ?RBC 4.45 L (4.70-6.10) - M /MM3 ?HGB 15.0 (13.7-17.1) - G M/DL ?HCT 45.2 (40.5-50.0) - % ?MCV 101.6 H (80.0-94.0) - F L ?MCH 33.7 (27.0-34.0) - P G ?MCHC 33.2 (33.0-37.0) - g /dL ?MPV 10.9 (9.4-12.4) - FL ?RDW-SD 50.9 H (<47.0) - FL ?ABS. NRBC 0.0 - K/MM3 ?Imm Gran 0.5 - % ?Abs. Imm Gran 0.0 - K/MM 3 ?PLT 201 (150-460) - K/M M3 ?AUTOMATED NRBC 0.0 - #/1 00 WBC'S ?NEUT 37.0 L (44-76) - % ?LYMPH 43.8 H (15-43) - % ?MONOCYTE 12.2 H (4.5-10.5) - % ?EO 5.7 (0-6) - % ?LYMPH # 2.6 (0.8-3.1) - K/MM3 ?BASO 0.8 (0-2) - % ?MONO# 0.7 (0.4-1.3) - K/ MM3 ?NEUT # 2.2 (1.3-7.0) - K /MM3 ?EO # 0.3 (0.0-0.4) - K/M M3 ?BASO # 0.1 (0.0-0.1) - K /MM3 ???Lab:COMPREHENSIVE METABOL IC PANEL (Order Date - 08/19/2022) (Collection Date & Time - 08/19/2022 04:10 PM) ? Value Reference Range ?ALBUMIN 4.2 (3.4-4.8) - GM/DL ?ALK PHOS 93 (40-129) - U/L ?BILIRUBIN,TOTAL 0.3 (0-1 .2) - MG/DL ?CALCIUM 9.5 (8.6-10.5) - MG/DL ?BICARBONATE 28 (22-29) - MMOL/L ?CHLORIDE 105 (98-107) - MMOL/L ?EST GFR NON AMERI 88 - ML/MIN/1.73 M2 ?CREATININE 1.0 (0.7-1.2) - MG/DL ?ANION GAP 9 (4-17) - ?GLUCOSE 91 (70-99) - MG /DL ?AST 31 (0-40) - U/L ?ALT 30 (0-41) - U/L ?POTASSIUM 4.6 (3.6-5.2) - MMOL/L ?SODIUM 142 (133-145) - M MOL/L ?TOTAL PROTEIN 6.7 (6.2-8 .2) - GM/DL ?BUN 14 (6-20) - MG/DL ?AG RATIO 1.7 - ???Lab:LIPID PANEL W REFLEX TO DLDL (Order Date - 08/19/2022) (Collection Date & Time - 08/19/2022 04:10 PM) ? Value Reference Range ?LDL CHOLESTEROL, CALCULAT 117 (0-130) - MG/DL ?CHOLESTEROL, TOTAL 198 ( <200) - MG/DL ?HDL CHOL 49 (>39) - MG/ DL ?NON HDL CHOLESTEROL (CALC 149 (<160) - MG/DL ?TRIGLYCERIDES 158 H (<150) - MG/DL ?CHOLESTEROL/HDL RATIO (CA 4.0 (<5.0) - ???Lab:HEMOGLOBIN A1C (Order Date - 08/19/2022) (Collection Date & Time - 08/19/2022 04:10 PM) ? Value Reference Range ?HEMOGLOBIN A1C 5.5 (4.0- 5.6) - % ???Lab:COMPLETE URINALYSIS ( Order Date - 08/19/2022) (Collection Date & Time - 08/19/2022 04:10 PM) ? Value Reference Range ?APPEAR/COLOR LIGHT YELLOW - ?SP. GRAVITY 1.020 (1.002-1 .030) - ?URINE PH 7.0 (5.0-8.0) - ?URINE ALBUMIN NEGATIVE (NEG) - ?URINE GLUCOSE NEGATIVE (NEG) - ?URINE KETONES NEGATIVE (NEG) - ?URINE BILIRUBIN NEGATIVE (NEG ) - ?URINE HEMOGLOBN NEGATIVE (NEG ) - ?URINE NITRITE NEGATIVE (NEG) - ?URINE LEUKOCYTE NEGATIVE (NEG ) - ?UROBILINOGEN NORMAL (NORM) - MG/DL ?URINE WBC'S 1 (0-5) - /HPF ?URINE RBC'S 1 (0-3) - /HPF ?MUCUS SLIGHT - /LPF ???Lab:25OH VITAMIN D (Order Date - 08/19/2022) (Collection Date & Time - 08/19/2022 04:10 PM) ? Value Reference Range ?25OH VITAMIN D 52.5 H (20-5 0) - NG/ML ???Lab:PSA (Order Date - 02/2023) (Collection Date & Time - 08/19/2022 04:10 PM) ? Value Reference Range ?PSA 0.7 (0-4) - NG/ML ???Lab:ANTI-HEPATITIS C W/RF LX HCV QNT (Order Date - 08/19/2022) (Collection Date & Time - 08/19/2022 04:10 PM) ? Value Reference Range ?ANTI-HEPATITIS C NEGATIVE (NE G) - * Examination: ???General Examination: ?GENERAL APPEARANCE:?Age appropriate, [...] lower extremities, no tremor.?PSYCH:?alert, oriented, good eye contact.? Assessment: * Assessment: 1.?Obstructive sleep apnea ( adult) (pediatric) - G47.33?2.?Encounter for general adult medical examination without abnormal findings - Z00.00 (Primary)?3.?Gout, unspecified - M10.9?4.?Vitamin D deficiency, unspecified - E55.9?5.?Encounter for screening for malignant neoplasm of colon - Z12.11?6.?Encounter for screening for malignant neoplasm of prostate - Z12.5?7.?Encounter for screening for cardiovascular disorders - Z13.6?8.?Encounter for immunization - Z23?9.?Encounter for antibody response examination - Z01.84?10.?Encounter for screening for other viral diseases - Z11.59? Plan: * Treatment: ? Value Reference Range ?Specific [place] 1.021 1.005- 1.030 - * ?pH 7.5 5.0-7.5 - * ?Urine-Color Yellow Yellow - * ?Appearance Clear Clear - * ?WBC Esterase Negative Negative - * ?Protein Negative Negative/Trace - * ?Glucose Negative Negative - * ?Ketones Negative Negative - * ?Occult Blood Negative Negative - * ?Bilirubin Negative Negative - * ?Urobilinogen,Semi-Qn 0.2 0. 2-1.0 - mg/dL * ?Nitrite, Urine Negative Negative - * ?WBC None seen 0 - 5 - /hpf * ?RBC 0-2 0 - 2 - /hpf * ?Epithelial Cells (non renal) None seen 0 - 10 - /hpf * ?Casts None seen None seen - /lp f * ?Bacteria None seen None seen/Few - * ?Microscopic Examination See below: - * This lab was reviewed by Bernard Lr on 08/24/2023 at 18:27 PM EDT ?LAB: CBC With Differential/Platelet-[id number]* ? Value Reference Range ?WBC 7.1 3.4-10.8 - x10E 3/uL * ?RBC 5.01 4.14-5.80 - x10 E6/uL * ?Hemoglobin 16.6 13.0-17.7 - g/dL * ?Hematocrit 49.6 37.5-51.0 - % * ?MCV 99 H 79-97 - fL * ?MCH 33.1 H 26.6-33.0 - pg * ?MCHC 33.5 31.5-35.7 - g/d L * ?RDW 12.8 11.6-15.4 - % * ?Platelets 248 150-450 - x10 E3/uL * ?Neutrophils 44 Not Estab. - % * ?Lymphs 42 Not Estab. - % * ?Monocytes 11 Not Estab. - % * ?Eos 2 Not Estab. - % * ?Basos 1 Not Estab. - % * ?Neutrophils (Absolute) 3.1 1.4-7.0 - x10E3/uL * ?Lymphs (Absolute) 3.0 0.7-3 .1 - x10E3/uL * ?Monocytes(Absolute) 0.8 0.1 -0.9 - x10E3/uL * ?Eos (Absolute) 0.2 0.0-0.4 - x10E3/uL * ?Baso (Absolute) 0.1 0.0-0.2 - x10E3/uL * ?Immature Granulocytes 0 N ot Estab. - % * ?Immature Grans (Abs) 0.0 0. 0-0.1 - x10E3/uL * This lab was reviewed by Bernard Lr on 08/24/2023 at 18:27 PM EDT ?LAB: Comp. Metabolic Panel (14)-[id number]* ? Value Reference Range ?Glucose 104 H 70-99 - mg/dL * ?BUN 13 6-24 - mg/dL * ?Creatinine 0.97 0.76-1.27 - mg/dL * ?BUN/Creatinine Ratio 13 9- 20 - * ?Sodium 145 H 134-144 - mmol/ L * ?Potassium 4.7 3.5-5.2 - mmo l/L * ?Chloride 104 96-106 - mmol/ L * ?Carbon Dioxide, Total 23 2 0-29 - mmol/L * ?Calcium 9.7 8.7-10.2 - mg/d L * ?Protein, Total 7.4 6.0-8.5 - g/dL * ?Albumin 4.3 3.8-4.9 - g/dL * ?Globulin, Total 3.1 1.5-4.5 - g/dL * ?A/G Ratio 1.4 1.2-2.2 - * ?Bilirubin, Total 0.2 0.0-1. 2 - mg/dL * ?Alkaline Phosphatase 106 44 -121 - IU/L * ?AST (SGOT) 24 0-40 - IU/L * ?ALT (SGPT) 27 0-44 - IU/L * ?eGFR 90 >59 - mL/min/1. 73 * This lab was reviewed by Bernard Lr on 08/24/2023 at 18:27 PM EDT ?LAB: LP+Non-HDL Cholesterol-[id number]* ? Value Reference Range ?Cholesterol, Total 220 H 100- 199 - mg/dL * ?Triglycerides 135 0-149 - m g/dL * ?HDL Cholesterol 52 >39 - m g/dL * ?VLDL Cholesterol Mehdi 24 5- 40 - mg/dL * ?LDL Chol Calc ([facility]) 144 H 0-9 9 - mg/dL * ?Non-HDL Cholesterol 168 H 0-1 29 - mg/dL * This lab was reviewed by Bernard Lr on 08/24/2023 at 18:27 PM EDT Clinical Notes: General healthcare up-to-date. Check routine labs?? 2.?Obstructive sleep apnea (adult) (pediatric)? Clinical Notes: He is not using his CPAP on a nightly basis. He realizes that when he does use his CPAP he feels better. Recommend nightly use of CPAP.?? 3.?Gout, unspecified?LAB: Uric Acid-[id number]* ? Value Reference Range ?Uric Acid 4.3 3.8-8.4 - mg/ dL * This lab was reviewed by Bernard Lr on 08/24/2023 at 18:27 PM EDT Clinical Notes: Stable prophylactic therapy without any acute flares??4.?Vitamin D deficiency, unspecified?LAB: Vitamin D, 47-Saidyma-[id number]* ? Value Reference Range ?Vitamin D, 25-Hydroxy 62.9 3 0.0-100.0 - ng/mL * This lab was reviewed by Bernard Lr on 08/24/2023 at 18:27 PM EDT Clinical Notes: Check level to verify that there is no deficiency ??5.?Encounter for screening for malignant neoplasm of colon? Clinical Notes: Up-to-date on colon cancer screening??6.?Encounter for screening for malignant neoplasm of prostate?LAB: Prostate-Specific Ag-[id number]* ? Value Reference Range ?Prostate Specific Ag 0.9 0. 0-4.0 - ng/mL * This lab was reviewed by Bernard Lr on 08/24/2023 at 18:27 PM EDT Clinical Notes: Can check PSA has prostate cancer screening realizing the limitation of this test as a screening test??7.?Encounter for screening for cardiovascular disorders?Imaging: EBCT Coronary calcium score Clinical Notes: Blood pressure is stable. Can check for comorbidity of hyperlipidemia and hyperglycemia to further assess risk. He would benefit from coronary artery calcium scoring for further cardiovascular risk assessment.?? 8.?Encounter for immunization? Clinical Notes: Vaccines up to date??9.?Encounter for antibody response examination?LAB: Measles/Mumps/Rubella Immunity-[id number]* ? Value Reference Range ?Rubella Antibodies, IgG 12.70 Immune >0.99 - index * ?Measles Antibodies, IgG >300.0 Immune >16.4 - AU/mL * ?Mumps Abs, IgG 131.0 Immune > 10.9 - AU/mL * This lab was reviewed by Bernard Lr on 08/24/2023 at 18:27 PM EDT Clinical Notes: Can check titers to verify immune status to rubeola?? 10.?Encounter for screening for other viral diseases?LAB: HCV Antibody-[id number]* ? Value Reference Range ?Hep C Virus Ab Non Reactive Non Reac tive - * This lab was reviewed by Bernard Lr on 08/24/2023 at 18:27 PM EDT Clinical Notes: Can screen for hepatitis C as per general recommendation?? 11.?Others? Clinical Notes: This note was created with voice dictation recognition software and may contain errors of grammar and syntax. Also labs were reviewed with patient.?? * Procedure Codes:? * Preventive Medicine:? ??YOUR PREVENTIVE WELLNESS PLAN:?Prevnar?The Recommended Frequency is:?1 [...] Tdap was administered?07/26/2018 ?Tetanus?Last Tetanus was administered?08/15/2009 ?COVID?Membership Assistant?Moderna ?First Dose?07/24/2020 ?Second Dose?08/21/2020 ?Booster Membership Assistant?Moderna ?Booster?04/21/2021 ??Screenings:?Colon cancer screening?Provider recommendation:?10 years ?Date of most recent screening:?06/04/2015 * Follow Up:?1 Year (Reason: A nnual) Care Plan: * Problems:? * Images: Billing Information: * Visit Code:? G0442 Annual Alcohol Misuse Screening, 15 min. Modifiers: G0444 Annual Depression Screening, 15 min. Modifiers: G0446 Cardiovascular Screening. Modifiers: 85768 Preventive Care Est Pt. Age 40-64. * Procedure Codes:? * Sign off status: Completed true * Provider:?Mallory Lr MD Date:?08/22 Generated for Dayanarai wendy/[place]/eTransmitting on:?08/28/2024 05:26 PM EDT History and Physical Notes * HPI (History of Present Illness) Category Sub-Category Detail Notes Category Not es Depression Screening PHQ-2 (2015 Edition) Little interest or pleasure in doing things?: Not at all Feeling down, depressed, or hopeless?: N ot at all Total Score: 0 Examination Category Sub-Category Detail Notes Category Not es General Examination GENERAL APPEARANCE: Age appr opriate, [...]
--- OUTSIDE RECORDS SUMMARY | 2024-08-28 17:26 | XMS_ITS ---
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 Generated for Dayanarai wendy/[place]/eTransmitting on:?08/28/2024 05:26 PM EDT
== END 2024-08-28 14:39 | disposition home or self-care (01) ==
LOC: HO.HMGCX 14:38
PROVIDERS: PCP Internal Medicine; Visit Provider Internal Medicine
DX: M18.12 Unilateral primary osteoarthritis of first carpometacarpal joint, left hand (principal)
CPT/HCPCS: 73130

== ENCOUNTER → 2024-08-28 14:48 | Outpatient (BNV) | payer OTHER, SELFPAY | PROVIDERS: PCP Internal Medicine; Visit Provider Radiology Diagnostic Radiology | DX: M18.12 Unilateral primary osteoarthritis of first carpometacarpal joint, left hand (principal) | CPT/HCPCS: 73130 ==